=== PATIENT | female | born 1945 | race Caucasian/White ===

== ENCOUNTER → 2016-03-20 | Outpatient (CLI) | payer OTHER ==
[~2016-03-20] MED LIST: ASPIR 8181 MG PO; CALCIUM 500 +1 EAC5 PO; COENZYME Q10 PO; FISH OIL 1,001000 M2 PO; IBUPROFEN 200200 M1 PO; IBUPROFEN 800800 M1 PO; OMEPRAZOLE20 M2 PO; PREMARIN0.625 MG TOP; RED YEAST RICE600 M1 PO; WELCHOL3.75 GM PO; ZANAFLEX4 MG PO
--- NOTE | ~2016-03-20 | S ---
[facility] [place] [place] [address] SURGICAL PATH RPT PROCEDURE Name: SAMIRA CONNER ANALISA Room #: REG [facility]..#: [id number] Admission: 03/20/16 Date of : 43 Discharge: Report #: [id number] Path Case #: [id number] PATHOLOGY REPORT COLLECTION DATE: 03/20/2016 RECEIVED DATE: 03/21/2016 SUBMITTING PHYS: Dr. Harman Meza OTHER PHYS: Dr. Jefe Pride SPECIMEN(S) RECEIVED: A.Bx duodenum * * * * * * * * * * * * FINAL DIAGNOSIS: Small bowel, duodenum, endoscopic biopsy: - No diagnostic abnormalities present. - Negative for villous blunting or increase in intraepithelial lymphocytosis. (IUV:csd; d/t: 03/22/2016) PATHOLOGIST: An Dover M.D. REPORT ELECTRONICALLY SIGNED BY: An Dover M.D. DATE/TIME: 03/22/2016 16:45 * * * * * * * * * * * * GROSS PATHOLOGY: Received in formalin labeled "Samira Conner and bx duodenum," are 4 segments of ratliff soft tissue measuring 1.5 x 0.3 x 0.2 cm in aggregate dimensions and ranging from 0.2 to 0.6 cm in maximum dimension. The specimen is submitted entirely in cassette A1. (TTL; 03/21/2016) CLINICAL HISTORY: Iron deficiency anemia INITIAL CPT CODE(S): A; 19627 Professional services performed by [facility] at [facility] [address] [place] [address] Technical services performed by [facility] at [address] [place] [id number]. [facility] [address] [place] [address] SURGICAL PATH RPT PROCEDURE Name: SAIMRA CONNER Room #: REG [facility]#: [id number] Admission: 03/20/16 Date of : 43 Discharge: Report #: [id number] Path Case #: [id number] [address] PHONE: [phone] DIRECTOR: Naun Motta M.D. * * * END OF REPORT * * *
--- NOTE | ~2016-03-20 | P ---
[facility] [place] [address] PROCEDURE REPORT Name: SAMIRA MCBRIDE Room #: REG [facility].#: [id number] Admission: 03/20/16 Attend Phys: Harman Tran Discharge: Date of : 43 Report #: [id number] THIS REPORT FOR: //name// CC: Harman Pride MD DATE OF SERVICE: 03/20/2016 PROCEDURE PERFORMED: Colonoscopy. HISTORY OF PRESENT ILLNESS: The patient is a 70-year-old female with a history of iron-deficiency anemia and heme-positive stools. She denies any obvious bright red blood per rectum or melena. EGD was just performed, which was normal. Biopsies were obtained for celiac sprue. There is no family history of colon cancer. DESCRIPTION OF PROCEDURE: The risks and benefits of the procedure were explained to the patient, those risks including but not limited to bleeding, perforation and the risk of sedation. She understood these risks and gave informed consent. Sedation was given using propofol and ketamine. Next, a digital rectal exam was initially performed, which was normal. Next, using a standard [employer] colonoscope, the scope was placed in the patient's anus and advanced under direct vision to the cecum. The overall prep was excellent. The cecum and ileocecal valve were normal in appearance. The ascending colon was normal. Transverse colon was normal. Multiple diverticula were noted throughout the descending and sigmoid colon. No evidence of inflammation, otherwise normal. The rectal mucosa was normal. On retroflexion, small nonbleeding internal hemorrhoids were noted. Scope was then withdrawn and the procedure terminated. The patient tolerated the procedure well. IMPRESSION: 1. Diverticulosis involving the left colon. No inflammation. 2. Small nonbleeding internal hemorrhoids. 3. Otherwise, normal colonoscopy. RECOMMENDATIONS: No stigmata of bleeding on EGD or colonoscopy today. We will await biopsies of the duodenum. If negative for celiac sprue, then we would recommend proceeding with an M2 capsule endoscopy of the small intestine of the small bowel. [facility] [address] [place] [address] PROCEDURE REPORT Name: SAMIRA MCBRIDE Room #: REG [facility]#: [id number] Admission: 03/20/16 Attend Phys: Harman Tran Discharge: Date of : 43 Report #: [id number] Thank you for allowing me to participate in her care. <ELECTRONICALLY SIGNED> By: Harman Meza MD 03/22/16 1358 [id number] Harman Meza MD /nt
--- NOTE | ~2016-03-20 | P ---
[facility] [place] [address] PROCEDURE REPORT Name: SAMIRA MCBRIDE [id number] Admission: 03/20/16 Attend Phys: Harman Tran Discharge: Date of : 43 Report #: [id number] THIS REPORT FOR: //name// CC: Harman Pride MD DATE OF SERVICE: 03/20/2016 PROCEDURE PERFORMED: Upper endoscopy with biopsies. HISTORY OF PRESENT ILLNESS: The patient is a 70-year-old female with a history of iron deficiency anemia and recent Hemoccult positive stool. She has a history of gastroesophageal reflux disease and takes Prilosec on a daily basis. Denies any dysphagia or odynophagia. She denies any obvious melena or bright red blood per rectum. Last colonoscopy was years ago, reportedly had polyps at that time. No family history of colon cancer. Plan is for EGD and colonoscopy today. PROCEDURE: The risks and benefits of the procedure were explained to the patient, those risks including, but not limited to bleeding, perforation, the risk of sedation. She understood these risks and gave informed consent. Sedation was given using propofol per anesthesia. Next, using a standard [employer] upper endoscope, the scope was placed in the patient's mouth and advanced under direct vision through the esophagus, stomach and into the second portion of the duodenum. The esophagus was normal throughout. The GE junction was normal. Overall, the gastric mucosa was normal. The pylorus was normal and patent. The duodenal bulb, first and second portion were all normal. Because of her history of anemia, biopsies were obtained to rule out celiac sprue. The scope was then withdrawn and the procedure terminated. The patient tolerated the procedure well. IMPRESSION: Normal upper endoscopy. RECOMMENDATIONS: 1. Await biopsy results. 2. We will proceed with colonoscopy next today. Thank you for allowing me to participate in her care. <ELECTRONICALLY SIGNED> By: Harman Meza MD 03/23/16 1056 [id number] Harman Meza MD /nt
== END | disposition home or self-care (01) ==
LOC: GI 07:04
DX: K57.30 Diverticulosis of large intestine without perforation or abscess without bleeding (principal); K64.8 Other hemorrhoids; K21.9 Gastro-esophageal reflux disease without esophagitis; Z86.010 Personal history of colon polyps
CPT/HCPCS: 62110; 62900

== ENCOUNTER → 2016-04-24 | Outpatient (CLI) | payer OTHER | LOC: GI 07:01 | DX: K57.30 Diverticulosis of large intestine without perforation or abscess without bleeding (principal); K64.8 Other hemorrhoids ==